=== PATIENT | male | born 1955 | race Caucasian/White ===

== ENCOUNTER 2018-10-05 14:49 | Inpatient (IN) | payer OTHER ==
[~2018-10-05] VITALS: Ht 165.1 cm; Wt 85.7 kg
[~2018-10-05 14:49] MED LIST: ASPIR 8181 MG PO; COREG3.125 MG PO; HYDROCHLOROTH12.5 M1 PO; NITROSTAT0.4 M1 SUBLING; NOHOMEMEDICATIONS; ZOCOR 10 MG TAB10 MG PO
[2018-10-05 20:35] VITALS: BP 156/93
--- NOTE | 2018-10-06 00:33 | NUR ---
PT ADMITTED TO 511 VIA W/C AT 2030 LAST EVENING. PT ALERT AND ORIENTED X 2, VERY FORGETFUL. PT POOR HISTORIAN, MOST OF HISTORY OBTAINED FROM RECORDS FROM [facility]. AMB TO BR WITH WALKER AND ASSIST X 1. RIGHT SIDED WEAKNESS AND SLURRED SPEECH NOTED. PT WITH STOOL SOILED JEANS UPON ARRIVAL TO UNIT. PT WEARING BRIEFS. PT REFUSES FLU SHOT. PT DENIES PAIN OR DISCOMFORT. ORIENTED TO ROOM AND USE OF CALL LIGHT. CONSENTS SIGNED WITH X. PT INSTRUCTED REGARDING FALL PRECAUTIONS. PT FED HIMSELF DINNER USING LEFT HAND. IMAN ROBISON, MICROCOMPUTER SUPPORT SPECIALIST NOTIFIED OF PT'S ADMISSION. PT DENIES PAIN OR DISCOMFORT. BED ALARM ON FOR SAFETY. PT APPEARS TO BE SLEEPING ON HOURLY ROUNDS.
[2018-10-06 04:03] LABS: CALCIUM 8.8 mg/dL (8.5-10.1); CREATININE 0.9 mg/dL (0.7-1.3); POTASSIUM 4.4 mmol/L (3.5-5.1)
[2018-10-06 04:35] LABS: HEMATOCRIT 41.3 % (42.0-52.0); HEMOGLOBIN 14.2 gm/dL (14.0-18.0); MCH 31.1 pg (26.0-34.0); MCHC 34.3 g/dL (28.0-37.0); MCV 90.8 fL (80.0-100.0); RBC 4.55 mil/uL (4.50-6.00); WBC 5.6 thou/uL (4.0-11.0)
[2018-10-06 08:49] VITALS: BP 148/87
--- NOTE | 2018-10-06 10:44 | NUR ---
ASSUMED CARES AT 0700. PT SOUND ASLEEP, WOKE UP AT 0730, ALERT AND ORIENTED *4. DENIES PAIN. VITALS STABLE. PT HAS A MILD COUGH, NON-PRODUCTIVE. SKIN REMAINS INTACT. PT UP WITH 1 PERSON MIN ASSIST AND TOLERATED WELL. AMBULATED WITH THERAPY AND TOLERATED ACTIVITY WELL. Q1H VISUAL CHECKS. CALL LIGHT WITHIN REACH. FALL PRECAUTIONS IN PLACE
[2018-10-06 12:21] LABS: CHOLESTEROL 80 mg/dL (<200); HDL CHOLESTEROL 35 mg/dL (>40); LDL CHOLESTEROL 35 mg/dL (<100); TC:HDL 2.3 Ratio (Not establshd); TRIGLYCERIDE 51 mg/dL (<150); VLDL 10 mg/dL (<40)
--- NOTE | 2018-10-06 16:16 | NUR ---
CHART REVIEW, CM CONSULTED FOR DCP. PT PREFERRS GOING BY ALEXANDER, HE WAS RESTING IN BED WITH EYES OPEN AND TV ON LOUD. OFFERED TO MUTE TV DURING VISIT SO HE COULD HER QUESTION. " OK"/PT. HE REPORTED AND TRIED TO ANSWER ALL QUESTION RT DCP, NOTED SOME DIFF FORMING WORDS WITH MOUTH AND SOFT SPOKEN, ENCOURAGE HIM TO SPEAK LOUD. " LIVES IN [place], DRINKS COFFEE IN MORNING AT [address]. SHED IS AT [place]. SHED IS WARM. TAKE THE BUS. MANAGE OWN MEDICATION, ONLY ON BLOOD PRESSURE MED. NO DR. HAVE CANE AT [facility]ACE. GOING TO STAY WITH BROTHER KIMBERLY. DO NOT NOW NUMBER, I WILL GET IT. DO CALL HIM HE IS BUSY"/ALEXANDER. EDUCATION ON HAVING PRIM DR TO SEE AND FOLLOW UP WITH, EDUCATION ON SENIOR CLINIC AND MEDICAID IF EVER NEEDS LTC " OK TO TALK TO THEMS"/ALEXANDER. CM TEAM TO SEND REFERRAL TO [facility]
--- NOTE | 2018-10-06 16:18 | NUR ---
dp sending face sheet to [facility]. DP will check to ensure delivery of fax.
[2018-10-06 19:20] VITALS: BP 134/64
--- NOTE | 2018-10-07 01:51 | NUR ---
PT ALERT AND ORIENTED X 4. RIGHT SIDED WEAKNESS AND SLURRED SPEECH NOTED. PT AMB TO BR WITH WALKER AND ASSIST X 2. VERY UNSTEADY GAIT. PT DENIES PAIN OR DISCOMFORT. BED ALARM ON FOR SAFETY. PT APPEARS TO BE SLEEPING ON HOURLY ROUNDS.
[2018-10-07 07:49] VITALS: BP 150/78
[2018-10-07 12:39] VITALS: BP 112/69
[2018-10-07 17:12] VITALS: BP 134/68
[2018-10-07 19:09] VITALS: BP 135/75
--- NOTE | 2018-10-07 20:36 | NUR ---
ASSUMED CARES AT 0700. ALERT AND ORIENTED X4. HAS SLURRED SPEECH, HAS WEAKNESS ON RIGHT SIDE. C/O HEADACHE THIS AM. RATED PAIN 5/10, GAVE PRN TYLENOL. DENIES PAIN NOW. VITALS STABLE. PT HAS A MILD COUGH, NON-PRODUCTIVE. SKIN REMAINS INTACT. PT UP WITH 1 PERSON MIN ASSIST AND TOLERATED WELL. AMBULATED WITH THERAPY AND TOLERATED ACTIVITY WELL. UP TO DINNING ROOM. HAS GOOD APPETITE. ABLE TO FEED HIMSELF WITH LEFT HAND. Q1H VISUAL CHECKS. CALL LIGHT WITHIN REACH. FALL PRECAUTIONS IN PLACE. GAVE REPORT TO NIGHT NURSE TO CONTINUE TO MONITOR.
--- NOTE | 2018-10-08 05:01 | NUR ---
PATIENT ALERT AND ORIENTED X PERSON AND PLACE. FLACCID ON THE R SIDE. CALLS OUT WHEN NEEDED. DENIES PAIN. SLEPT OFF AND ON DURING NIGHT.
[2018-10-08 07:56] VITALS: BP 141/79
--- NOTE | 2018-10-08 11:40 | NUR ---
ASSUMED CARE AT 0700, SHIFT ASSESSMENT DONE, VSS, MEDS GIVEN. REPORTED HEADECHE, PRN TYLENOL GIVEN WITH RELIEF. ATE BREAKFAST SITTING IN THE CHIAR THIS AM. WORKED WITH PHYSICAL THERAPHY AND OCCUPATIONAL THERAPHY. RESTING IN BED NOW. WILL CONTINUE TO ASSESS AND ASSIST WITH ADLs NEEDED.
[2018-10-08 19:40] VITALS: BP 148/76
--- NOTE | 2018-10-09 01:39 | NUR ---
PT LYING IN BED. DENIES PAIN. RESTING COMFORTABLY. NO NEEDS VOICED. CALL LIGHT WITHIN REACH. WILL CONTINUE TO PROVIDE FREQUENT OBSERVATION.
[2018-10-09 07:48] VITALS: BP 147/72
--- NOTE | 2018-10-09 12:38 | NUR ---
ASSUMED CARE AT APPROX 0715. PATIENT A/O X4. DYSARTHRIA NOTED, PATIENT IS ABLE TO MAKE NEEDS KNOWN WITH EXTRA TIME AND REPETITION. DENIES PAIN. VSS. EDUCATED ON EXCESSIVE CAFFEINE INTAKE AND HEART HEALTHY DIET. TOLERATING THIN LIQUIDS AND FOOD ON MODIFIED CHOPPED DIET. REFUSING TO COME OUT TO TABLES FOR MEALS, PATIENT OUT OF BED IN RECLINER, ROUNDED ON DURING MEALS. VOIDING PER URINAL AND TOILET, UP X2 PERSON ASSIST RECLINER <> STAND, AMBULATED TO BATHROOM X1 ASSIST, 2ND PERSON PRESENT FOR SAFETY. FALL PRECAUTIONS IN PLACE. WILL CONTINUE TO MONITOR.
[2018-10-09 16:33] VITALS: BP 122/79
[2018-10-09 19:27] VITALS: BP 140/74
--- NOTE | 2018-10-10 01:39 | NUR ---
ASSUMED CARE OF PT AT 1915. PT ALERT, ORIENTED X4. DENIES NAUSEA OR DYPSNEA. RIGHT HEMIPARESIS NOTED. STANDS AT BEDSIDE TO VOID, PT REQUESTS ASSIST OF TWO STAFF. C/O LEFT-SIDED HEADACHE, PARTIALLY RELIEVED WITH TYLENOL. HAS APPEARED TO BE SLEEPING WHEN CHECKED ON HOURLY ROUNDS. FALL PRECAUTIONS IN PLACE.
[2018-10-10 07:29] VITALS: BP 136/71
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
[2018-10-10 17:14] VITALS: BP 143/90
[2018-10-10 20:53] VITALS: BP 140/78
--- NOTE | 2018-10-11 00:52 | NUR ---
PT ALERT AND ORIENTED X 4. STANDS AT SIDE OF BED WITH ASSIST X 1 TO USE URINAL. RIGHT SIDED WEAKNESS AND SLURRED SPEECH NOTED. PT C/O HEADACHE. TYLENOL GIVEN ORDERED. BED ALARM ON FOR SAFETY. PT CHECKED ON HOURLY ROUNDS.
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
[2018-10-11 09:00] VITALS: BP 127/70
[2018-10-11 09:44] VITALS: BP 153/84
--- NOTE | 2018-10-11 10:56 | NUR ---
ASSUMED CARE AT 0700. PATIENT IS ALERT AND ORIENTED X4 AND FORGETFUL. PATIENT HAS RIGHT SIDED WEAKNESS AND SLURRED SPEECH. LUNGS ARE CLEAR AND DEMINISHED. ABD IS SOFT WITH BSX4. PATIENT VOIDS PER URINAL AND HAS EPISODES OF INCONTINENCE. FALL AND SAFETY PROTOCOLS IN PLACE. AFO BRACE ORDERED FOR PATIENT. DENIES ANY PAIN AT THIS TIME. CONTINUES TO PROGRESS SLOWLY TOWARDS D/C GOALS. WILL CONTINUE TO MONITER.
--- NOTE | 2018-10-11 13:04 | NUR ---
team meeting, recommendation : cont therapy and re-team. cm to reach out to brother zoey to discuss dcp. dcp re-team
[2018-10-11 20:00] VITALS: BP 141/71
--- NOTE | 2018-10-12 01:00 | NUR ---
PT ALERT AND ORIENTED X 4. RIGHT SIDED WEAKNESS AND SLURRED SPEECH NOTED. VOIDING ADEQUATE AMTS PER URINAL. PT DENIES PAIN OR DISCOMFORT. BED ALARM ON FOR SAFETY. PT APPEARS TO BE SLEEPING ON HOURLY ROUNDS.
[2018-10-12 09:34] VITALS: BP 128/80
[2018-10-12 19:05] VITALS: BP 138/64
--- NOTE | 2018-10-13 05:45 | NUR ---
Assumed care of pt at 1915. Pt alert and oriented x4, calm and cooperative. c/o headache, relieved with po tylenol. Ambulates to bathroom with assist of one using walker and gait belt. Denies dypsnea or nausea. Has appeared to be sleeping when checked on hourly rounds. Fall precautions in place.
[2018-10-13 05:56] LABS: BASOPHILS 1.2 % (0.0-2.0); EOSINOPHILS 4.3 % (0.0-3.0); HEMATOCRIT 41.4 % (42.0-52.0); HEMOGLOBIN 15.3 gm/dL (14.0-18.0); LYMPHOCYTES 20.3 % (24.0-44.0); MCH 32.4 pg (26.0-34.0); MCV 87.5 fL (80.0-100.0); MONOCYTES 11.2 % (1.0-8.0); PLATELET COUNT 258 thou/uL (150-400); RBC 4.73 mil/uL (4.50-6.00); RDW 12.8 % (10.5-14.5); WBC 4.7 thou/uL (4.0-11.0)
[2018-10-13 06:04] LABS: CALCIUM 8.8 mg/dL (8.5-10.1); CREATININE 0.9 mg/dL (0.7-1.3); MAGNESIUM 1.7 mg/dL (1.8-2.4); POTASSIUM 3.8 mmol/L (3.5-5.1)
[2018-10-13 09:44] VITALS: BP 127/56
--- NOTE | 2018-10-13 15:46 | NUR ---
AAOX4. COOPERATIVE. WORKING WITH PT, OT, AND ST. OUT TO COMMON AREA FOR MOST MEALS. FREQUENT CHECKS; WILL CONTINUE TO MONITOR.
[2018-10-13 20:03] VITALS: BP 112/83
--- NOTE | 2018-10-14 02:22 | NUR ---
ASSUMED CARE OF PT AT START OF SHIFT, PT RESTING IN BED WATCH TV NO CONCERNS VOICED TAKING PO MEDIATION AND FLUIDS WELL. DISCUSSED CURRENT PLAN OF CARE AND AGREEABLE. WILL CONINTUE TO MONITOR AND REPORT CHANGES. RESTED WELL THROUGHOUT HOULRY ROUNDS.
--- NOTE | 2018-10-14 10:31 | H ---
[facility] [place] [address] HISTORY AND PHYSICAL Name: ALEXANDER UGALDE ANCA Room #: 511-P ADM IN M.R.#: [id number] Admission: 10/05/18 Attend Phys: Allen Adams MD Discharge: Date of : 53 Report #: [id number] THIS REPORT FOR: //name// CC: Allen Adams [facility] physician/PCP DATE OF SERVICE: 10/06/2018 POSTADMISSION PHYSICIAN EVALUATION HISTORY OF PRESENT ILLNESS: Please see Kylah Holguin's nurse practitioners full history and physical dictation. The patient originally presented to [facility] on 09/29/2018 with right-sided weakness. He underwent MRI scanning and was diagnosed with a left pontine CVA. Carotid Doppler and echocardiogram were not noted to reveal any specific embolic source that could contribute to the stroke. Plan is for aspirin and Plavix 1 month and then switch to Plavix only. The patient was noted to have right-sided weakness with decreased functional mobility and ADLs as well as cognitive concerns and to rule out any dysphagia. He has some communication difficulties with slurred speech that have been noted. He has been admitted for acute in-hospital inpatient rehabilitation. PAST MEDICAL HISTORY: Includes history of hypertension, hyperlipidemia, ETOH, tobacco abuse and noted to have an AR in the past. MEDICATIONS: Please see the full medication list. This includes vitamins, herbals, and supplements. SOCIAL HISTORY: He had been living with a girlfriend. His plan is to go stay with his brother. There is a threshold into the house. Did not utilize gait aids premorbidly. REVIEW OF SYSTEMS: No current complaints of chest pain, shortness of breath, or abdominal discomfort. PHYSICAL EXAMINATION: GENERAL: A 63-year-old male, pleasant, in no obvious distress, does have some dysarthria. HEENT: Appeared benign. CHEST: Sounded clear. CARDIOVASCULAR: Regular rate and rhythm. ABDOMEN: Bowel sounds positive, nontender. GENITOURINARY AND RECTAL: Deferred. EXTREMITIES: He does have some right-sided weakness. Right lower extremity is probably a grade 3-3+/5. Left lower extremity is more of a grade 4/5. Appears to have some mild weakness of that right upper extremity as well compared to the [address] [address] HISTORY AND PHYSICAL Name: ALEXANDER UGALDE [place] Room #: 511-P [facility] IN .R.#: [id number] Admission: 10/05/18 Attend Phys: Allen Adams MD Discharge: Date of : 53 Report #: [id number] left. He was a little groggy during the examination, which affected volitional testing. He has been min-assist to mod-assist for basic transfers utilizing a walker and has been calm and cooperative. ASSESSMENT: This is a 63-year-old right-handed male with the following problem list: 1. Left pontine stroke. 2. Right-sided hemiparesis. 3. Dysarthria. 4. Functional mobility, ADLs and cognitive communication/swallowing concerns. He is on a heart healthy diet, but speech therapy will be monitoring. 5. Hypertension. 6. ETOH/tobacco abuse. 7. History of right radial nerve palsy. PLAN: The overall plan of care is based on the preadmission screen, post-admission physician evaluation and information garnered from therapy assessments. 1. Estimated length of stay is probably at least 2-3 weeks pending progress. 2. Medical prognosis is reasonably good. 3. Anticipated interventions includes the interdisciplinary acute inpatient rehabilitation program with the goal of maximizing the patient's functional independence, so that he can hopefully return back to his prior living situation. We will have PT, OT, speech therapy involved as well as Rehabilitation nursing to assist regarding medication management, skin care prophylaxis, bowel and bladder issues and nursing education. Case management to be involved as well as the interdisciplinary acute inpatient rehabilitation team. 4. Anticipated functional outcomes would be for the patient to ideally be modified independent at least at the walker level with mobility and ADLs and to improve as far as cognition and to be swallowing without difficulty as well as communication. 5. Discharge destination would be to stay with his brother as noted above. 6. Expected therapy by discipline includes PT, OT and speech 1 hour per day each five days a week throughout the duration of the acute inpatient rehabilitation stay. From a postadmission physician evaluation perspective, there are no relevant changes since the preadmission screening. Please see the above review of prior and current medical and functional conditions and comorbidities. Please see the previous and current functional status. As far as risk of complications, he does have the above noted comorbidities. The initial plan of care involves the interdisciplinary acute inpatient rehabilitation program with the goal of maximizing the patient's functional independence, so he can hopefully return back to his home setting. Measurable functional goals would be for the patient to become modified independent at a walker level, so that he can return back to [address] [address] HISTORY AND PHYSICAL Name: ALEXANDER UGALDE Room #: 132-P ADM IN M.R.#: [id number] Admission: 10/05/18 Attend Phys: Allen Adams MD Discharge: Date of : 53 Report #: [id number] the home setting. Prognosis is reasonably good with estimated length of stay probably at least 2-3 weeks. Potential barriers would include his above noted comorbidities and decreased functional status. The patient meets diagnostic criteria for an acute in-hospital inpatient rehabilitation stay. He meets the medical necessity criteria and we will have the senior financial consultant physicians continue to follow. He does have the tolerance for therapies and has appropriate discharge goals back to the home setting. <ELECTRONICALLY SIGNED> By: Allen Adams MD 10/14/18 1031 1132 1150 Allen Adams MD /nt
--- NOTE | 2018-10-14 10:31 | PLAN ---
[facility] [place] [address] REHAB UNIT PLAN OF CARE Name: ALEXANDER UGALDE Room #: 511-P ADM IN M.R.#: [id number] Admission: 10/05/18 Attend Phys: Allen Adams MD Discharge: Date of : 53 Report #: [id number] THIS REPORT FOR: //name// CC: Allen Adams [facility] physician/PCP DATE OF SERVICE: 10/07/2018 PROGRESS NOTE/OVERALL PLAN OF CARE SUBJECTIVE: The patient is seen back today in followup. He was in no distress. Temperature 98, pulse 56, respirations 12, blood pressure 150/78. Transfers are mod assist with gait, mod assist 30 feet front-wheeled walker. In occupational therapy, upper body dressing is max assist with lower body dressing dependent. Speech is evaluating regarding cognition/swallowing. . ASSESSMENT: 1. Left pontine stroke. 2. Right-sided hemiparesis. 3. Hypertension. 4. ETOH, tobacco abuse. 5. History of right radial nerve palsy. PLAN: The overall plan of care is based on the preadmission screen, post-admission physician evaluation and information garnered from therapy assessments. 1. Estimated length of stay is at least 2-3 weeks pending progress. 2. Medical prognosis is reasonably good. 3. Anticipated interventions includes the interdisciplinary acute inpatient rehabilitation program with PT, OT, speech rehab nursing assisting regarding medication management, skin care prophylaxis, bowel and bladder issues and nursing education. Case management is involved as well as interdisciplinary acute rehabilitation team and the portfolio consultant physicians. 4. Anticipated functional outcomes would be for the patient to become modified independent with transfers, mobility, ADLs, communication and swallowing, so he can hopefully return to the home setting. He indicates he is going to move in with his brother. 5. Discharge destination is as noted above. There is an involved girlfriend that he has lived with the past and he indicated he was going to try to live with his brother. 6. Expected therapy by discipline includes PT, OT and speech 1 hour per day each five days a week throughout the duration of the acute inpatient [address] [address] REHAB UNIT PLAN OF CARE Name: ALEXANDER UGALDE Room #: 511-P [facility] IN .R.#: [id number] Admission: 10/05/18 Attend Phys: Allen Adams MD Discharge: Date of : 53 Report #: [id number] rehabilitation stay. Addendum: He also indicated that there is a friend that he could stay with as well. <ELECTRONICALLY SIGNED> By: Allen Adams MD 10/14/18 1031 1219 1845 Allen Adams MD /RICK
--- NOTE | 2018-10-14 12:39 | NUR ---
Nutrition: Pt admitted with CVA to rehab unit. Seen due to LOS. Chart reviewed. pt is eating well, 100% of meals recorded. Did voice he was tiring of mechanical soft diet. Noted ST conducting vital stim and trial tray of regular solids today. No wt since admit, prior stable weights. Low risk.
--- NOTE | 2018-10-14 20:03 | NUR ---
ASSUMED CARE AT 0700. PATIENT IS ALERT AND ORIENTED X4 AND FORGETFUL. PATIENT HAS RIGHT SIDED WEAKNESS AND SLURRED SPEECH. LUNGS ARE CLEAR AND DIMINISHED. ABD IS SOFT WITH BSX4.LAST BM WAS YESTERDAY PATIENT VOIDS PER URINAL WHILE STANDING, ASSISTED BY STAFF. HAS EPISODES OF INCONTINENCE OCCASIONALLY. FALL AND SAFETY PROTOCOLS IN PLACE. AFO BRACE USES WHEN WALKING DENIES ANY PAIN AT THIS TIME. OFFERED SUPPORTIVE CARE. ENCOURAGED PT TO VOICE HIS NEEDS. UP TO DINNING ROOM FOR MEALS, HAS GOOD APPETITE, ABLE TO FEED SELF, ASSISTED WITH SETTING UP. REASSESSMENT PER CHART. MEDS GIVEN. PT C/O NOT ABLE TO SLEEP LAST NIGHT, NICOTINE PATCH ON RIGH UPPER ARM, ENCOURAGED PT TO TAKE IT OFF IF HE ISABELLE'T SLEEP. OBTAINED TEMAZEPAM PRN FOR SLEEP. GAVE REPORT TO NIGHT NURSE TO GIVE SLEEPING MED NEEDS. CONTINUES TO PROGRESS SLOWLY TOWARDS D/C GOALS.
[2018-10-14 21:23] VITALS: BP 142/82
--- NOTE | 2018-10-15 04:33 | NUR ---
PATIENT ALERT AND ORIENTED X4. DENIES PAIN. USING URINAL. GIVEN SLEEP AIDE WITH GOOD RESULTS. RESTING QUIETLY. WILL MONITOR.
[2018-10-15 08:20] VITALS: BP 134/69
--- NOTE | 2018-10-15 11:00 | NUR ---
ASSUMED CARE AT 0700. PATIENT IS ALERT AND ORIENTED X4. TOOK TEMZAPEM LAST NIGHT. REPORT SLEPT WELL. PATIENT HAS RIGHT SIDED WEAKNESS AND SLURRED SPEECH. REASSESSMENT PER CHART. CONT BLADDER, USING URINAL WHILE STANDING, ASSISTED BY STAFF. FALL AND SAFETY PROTOCOLS IN PLACE. AFO BRACE USES WHEN WALKING DENIES ANY PAIN AT THIS TIME. OFFERED SUPPORTIVE CARE. ENCOURAGED PT TO VOICE HIS NEEDS. UP TO DINNING ROOM FOR BREAKFAST, HAS GOOD APPETITE, ABLE TO FEED SELF, ASSISTED WITH SETTING UP. REASSESSMENT PER CHART. MEDS GIVEN. PT IS IN GOOD SPIRIT AND WORK WELL WITH STAFF. CONTINUES TO PROGRESS SLOWLY TOWARDS D/C GOALS.FALL PRECAUTION IN PLACE. CALL LIGHT WITHIN REACH. PT CALLS APPROPRIATELY. HOURLY CHECK FOR NEEDS AND SAFETY.
[2018-10-15 19:40] VITALS: BP 137/84
--- NOTE | 2018-10-16 04:19 | NUR ---
ASSUMED CARE OF PT AT 1915. PT ALERT AND ORIENTED X4, CALM AND COOPERATIVE. RIGHT-SIDED WEAKNESS NOTED, RIGHT CHICKEN HANGER WEAK. DENIES PAIN, NAUSEA OR DYPSNEA. HAS APPEARED TO BE SLEEPING WHEN CHECKED ON HOURLY ROUNDS. FALL PRECAUTIONS IN PLACE.
[2018-10-16 08:00] VITALS: BP 141/76
--- NOTE | 2018-10-16 12:17 | NUR ---
ASSUMED PT CARE AT 0700H. PT VOICED NO CONCERN. PT HAS NO S/S OF DISTRESS. PT PARTICIPATED WITH THERAPY. PT IMPROVING ON L SIDE NOTED. PT PERSONAL BELONGINGS AND CALL LIGHT WITHIN REACH. PT CONTINUES BEING MONITORED FOR SAFETY.
[2018-10-16 17:28] VITALS: BP 129/67
[2018-10-16 20:17] VITALS: BP 148/75
--- NOTE | 2018-10-16 22:49 | NUR ---
PT ALERT AND ORIENTED X 4. RIGHT SIDED WEAKNESS. SLURRED SPEECH. STANDS AT SIDE OF BED TO USE URINAL WITH ASSIST X 1. PT DENIES PAIN OR DISCOMFORT. BED ALARM ON FOR SAFETY. PT APPEARS TO BE SLEEPING ON HOURLY ROUNDS.
[2018-10-17 07:38] VITALS: BP 136/63
--- NOTE | 2018-10-17 09:30 | NUR ---
ASSUMED CARE AT 0700. [place], HAS SLURRED SPEECH. PATIENT IS ALERT AND ORIENTED X4.ABLE TO VOICE HIS NEEDS. REPORTS DIDN'T SLEEP WELL LAST NIGHT AND C/O ARM SORE. DIDN'T ASK FOR SLEEP AID OR PAIN. ENCOURAGED PT TO ASK FOR PAIN AND SLEEPING AID NEED. PATIENT HAS RIGHT SIDED WEAKNESS, HIS GOALS ARE TO WORK ON HIS RIGHT LEG AND ARM TODAY AND PARTICIPATE WITH THERAPISTS. REASSESSMENT PER CHART. CONT BLADDER, USING URINAL WHILE STANDING, ASSISTED BY STAFF. FALL AND SAFETY PROTOCOLS IN PLACE. AFO BRACE USES WHEN WALKING DENIES ANY PAIN AT THIS TIME. OFFERED SUPPORTIVE CARE. ENCOURAGED PT TO VOICE HIS NEEDS. UP TO DINNING ROOM FOR BREAKFAST, HAS GOOD APPETITE, ABLE TO FEED SELF, ASSISTED WITH SETTING UP. MORNING MEDS GIVEN. DENIES SOB, PAIN OR HEADACHE. PT IS IN GOOD SPIRIT. CONTINUES TO PROGRESS SLOWLY TOWARDS D/C GOALS.FALL PRECAUTION IN PLACE. CALL LIGHT WITHIN REACH. PT CALLS APPROPRIATELY. HOURLY CHECK FOR NEEDS AND SAFETY.
[2018-10-17 19:35] VITALS: BP 131/70
--- NOTE | 2018-10-18 03:20 | NUR ---
Assumed care of pt at 1915. Pt alert and oriented x4. Denies pain, nausea or dypsnea. Declined sleeper at HS, has appeared to be sleeping when checked on hourly rounds. Fall precautions in place.
[2018-10-18 06:00] LABS: ABSOLUTE NEUTROPHILS 2.8 thou/uL (1.4-8.2); BASOPHILS 1.2 % (0.0-2.0); EOSINOPHILS 5.4 % (0.0-3.0); HEMATOCRIT 39.7 % (42.0-52.0); LYMPHOCYTES 21.8 % (24.0-44.0); MCH 31.2 pg (26.0-34.0); MCHC 35.3 g/dL (28.0-37.0); MCV 88.2 fL (80.0-100.0); MONOCYTES 10.9 % (1.0-8.0); PLATELET COUNT 225 thou/uL (150-400); POLYS 60.7 % (36.0-66.0); RDW 12.2 % (10.5-14.5); WBC 4.6 thou/uL (4.0-11.0)
[2018-10-18 06:10] LABS: CREATININE 0.9 mg/dL (0.7-1.3); MAGNESIUM 1.9 mg/dL (1.8-2.4); POTASSIUM 3.9 mmol/L (3.5-5.1)
[2018-10-18 08:07] VITALS: BP 126/64
--- NOTE | 2018-10-18 13:38 | NUR ---
team meeting recommendation dc home health ( pt, ot, st, nursing, aid, sw ), family training on , no dme, pt has own walker.
--- NOTE | 2018-10-18 17:21 | NUR ---
ASSUMED CARE AT 0700, SHIFT ASSESSMENT DONE, MEDS GIVEN, VSS. DENIES ANY NAUSEA, VOMITING, PAIN. WORKED WITH PHYSICAL AND OCCUPATIONAL THERAPHY. WILL CONTINUE TO ASSESS AND ASSIST WITH ADLs NEEDED.
[2018-10-18 19:20] VITALS: BP 171/96
[2018-10-19 08:00] VITALS: BP 113/73
--- NOTE | 2018-10-19 08:00 | NUR ---
ASSUMED PT CARE AT 0700. PT UP IN CHAIR AT DINING ROOM TABLE FOR BREAKFAST. IN NO APPARENT DISTRESS.
--- NOTE | 2018-10-19 10:00 | NUR ---
PT UP IN CHAIR, DRESSED. ALERT/ORIENTED X4. PLEASANT AND COOPERATIVE. DENIES PAIN AT THIS TIME. ASSESSMENT IS CHARTED. RIGHT SIDE WEAKNESS NOTED. NO OTHER CONCERNS AT THIS TIME. WILL CONTINUE WITH CURRENT PLAN OF CARE.
--- NOTE | 2018-10-19 12:30 | NUR ---
PT UP IN WHEELCHAIR FOR LUNCH IN DINING ROOM. NO NEW CONCERNS AT THIS TIME.
--- NOTE | 2018-10-19 16:38 | NUR ---
Pt PARTICIPATED IN COMMUNITY REINTEGRATION ACTIVITY WITH OT ON 10/19/18, PLEASE REFER TO OT DOCUMENTATION
--- NOTE | 2018-10-19 16:39 | NUR ---
PT RESTING IN BED, IN NO APPARENT DISTRESS. NO NEW CONCERNS AT THIS TIME.
[2018-10-19 19:20] VITALS: BP 149/76
--- NOTE | 2018-10-20 05:07 | NUR ---
PT RESTED GOOD, DENIES PAIN, SWALLOWED PILLS WITH NO DIFFICULTY, NO COUGH NOTED, RIGHT SIDE STILL WEAK, ON ROOM AIR, VOIDING PER URINAL, NO BM PASSED THIS SHIFT, BED ALARM ON, HOURLY ROUNDING, MONITORED.
[2018-10-20 07:45] VITALS: BP 134/70
--- NOTE | 2018-10-20 08:00 | NUR ---
PT DRESSED, UP IN CHAIR AND AT DINING ROOM TABLE FOR BREAKFAST. TOLERATING MEAL WELL.
[2018-10-20 08:50] VITALS: BP 129/76
--- NOTE | 2018-10-20 10:30 | NUR ---
PT UP IN WHEELCHAIR IN DINING ROOM. PT IS ALERT, ORIENTED X4 AND PLEASANT. ASSESSMENT IS CHARTED. PT HAS MILD LEFT SIDE WEAKNESS. DENIES PAIN AT THIS TIME. NO NEW CONCERNS. WILL CONTINUE WITH CURRENT PLAN OF CARE.
--- NOTE | 2018-10-20 12:34 | NUR ---
PT DOING WELL THIS SHIFT. TOLERATING THERAPY WELL. PT HAS BEEN UP IN WHEELCHAIR MOST OF THE DAY. AT DINING ROOM TABLE NOW WITH ST FOR LUNCH.
--- NOTE | 2018-10-20 14:12 | NUR ---
luis spoke with 5n team, brother zoey did not show for therapy training. cm call zoey he stated" i could not make it today, i had to get this job done 1st. is he going home tomorrow?, if so i will pick him up by 11 am, i do not have to work tomorrow."/zoey. [facility] ( pt, ot, st, nursing, aid and sw). zoey address is [address] [place] [address]. [facility] has own dme. will cont following as needed for dc needs.
[2018-10-20 14:18] VITALS: BP 129/76
--- NOTE | 2018-10-20 16:24 | NUR ---
PT DOING WELL THIS AFTERNOON. PARTICIPATED IN THERAPY TODAY AND TOLERATED WELL. NO NEW CONCERNS AT THIS TIME.
[2018-10-20 20:29] VITALS: BP 119/78
--- NOTE | 2018-10-21 04:10 | NUR ---
assumed care at approx 1900 evening 10/20. pt lying in bed with head of bed elevated alert and oriented x4 appropriate and cooperative. pt stated he was looking forward to being discharged. pt up to bathroom to have bm and also incontinent with some bm in his brief. pt voiding per urinal. pt took hs meds with water tolerating well. pt appears to be sleeping soundly with hourly rounding checks. bed alarm on and call light in reach. will continue to monitor.
[2018-10-21] MEDS ORDERED: NITROSTAT0.4 M1 SUBLING (07:47)
[2018-10-21] MEDS ORDERED: PEPCID20 MG PO (07:47)
[2018-10-21] MEDS ORDERED: COREG3.125 MG PO (07:47)
[2018-10-21] MEDS ORDERED: GABAPENTIN 100100 MG PO (07:47)
[2018-10-21] MEDS ORDERED: COLACE100 MG PO (07:47)
[2018-10-21] MEDS ORDERED: ZOCOR 10 MG TAB10 MG PO ×2 (07:47→07:49)
[2018-10-21] MEDS ORDERED: FELODIPINE ER10 MG PO (07:47)
[2018-10-21] MEDS ORDERED: ASA5UEC PO (07:47)
[2018-10-21] MEDS ORDERED: HYDROCHLOROTH12.5 M1 PO (07:49)
--- NOTE | 2018-10-21 09:05 | NUR ---
ASSUMED PATIENT CARE AT 0715 A.M. PATIENT IN BED, SUPINE POSITION. DENIES PAIN; DISCHARGE PENDING. PATIENT'S BROTHER SCHEDULED TO SENIOR SALES DIRECTOR PATIENT AT AROUND 11AM THIS DATE.
[2018-10-21 10:50] VITALS: BP 129/76
--- NOTE | 2018-10-21 13:01 | NUR ---
DISCHARGE INSTRUCTIONS GIVEN TO BROTHER AND PATIENT. PATIENT LEFT UNIT VIA W/C WITH MEDS AND ALL BELONGINGS.
--- NOTE | 2018-10-28 15:08 | H ---
[facility] [place] [address] HISTORY AND PHYSICAL Name: ALEXANDER UGALDE ANCA Room #: 511-P [facility] IN M.R.#: [id number] Admission: 10/05/18 Attend Phys: Allen Adams MD Discharge: 10/21/18 Date of : 51 Report #: [id number] THIS REPORT FOR: //name// CC: Allen Adams [facility] physician/PCP DATE OF SERVICE: 10/05/2018 HISTORY OF PRESENT ILLNESS: This is a 63-year-old male who is now admitted to acute inpatient rehabilitation unit from [facility]. The patient admitted to [facility] on 09/29/2018 with right-sided weakness x 2 days. He had actually presented approximately 10 days prior to [facility] with similar symptoms and at that time, MRI of the head was negative. On 09/29/2018, followup MRI of the brain revealed an acute left martha CVA. The patient has right-sided hemiparesis. He also has some dysarthria and dysphagia. As mentioned above, the patient is now on the inpatient rehabilitation unit at [facility]. Today, the patient reports some aches and pains in his legs. He does get some short of air with exertion and has a dry cough. He denies chest pain, nausea, abdominal pain. He had a bowel movement today. He denies any dysuria. He does have some hesitancy with starting of urination. The patient denies recent falls; however, the [facility] records do revealed 2 falls prior to admission. The patient denies dizziness, headache, numbness or tingling. PAST MEDICAL HISTORY: Hyperlipidemia, [place], hypertension, history of small CVA, medical noncompliance. HABITS: The patient is an everyday 1 pack per day cigarette smoker. He apparently has had no alcohol for 1 month, but has been a heavy drinker prior. Denies any illicit drug use. CODE STATUS: Full code. SOCIAL HISTORY: The patient has been homeless in the past. He was most recently living with his girlfriend. He tells me today he plans to move in with his brother who lives in the [facility]. He thinks there is about one stair to get inside the home and 0 stairs once inside. Premorbidly, the patient used a front-wheel walker. He was independent with ADLs and IADLs premorbidly. ALLERGIES: No known drug allergies. MEDICATIONS: Nicotine 14 mg transdermal patch daily, hydrochlorothiazide 12.5 mg daily, Plavix 75 mg daily, aspirin 325 mg daily, Norvasc 10 mg daily, nitroglycerin p.r.n., Carvedilol 3.125 mg twice a day, atorvastatin 10 mg at bedtime, gabapentin 100 mg twice a day, meclizine 25 mg t.i.d., senna 8.[address] [address] HISTORY AND PHYSICAL Name: ALEXANDER UGALDE Room #: 511-P [facility] IN M.R.#: [id number] Admission: 10/05/18 Attend Phys: Allen Adams MD Discharge: 10/21/18 Date of : 51 Report #: [id number] daily, Colace 100 mg twice a day p.r.n., bisacodyl 10 mg at bedtime rectally p.r.n. REVIEW OF SYSTEMS: Remainder of his 14-point review of systems is negative except as listed in HPI. PHYSICAL EXAMINATION: VITAL SIGNS: Blood pressure 148/87, respirations 17, pulse is 60, temperature 98.0. He is 95% oxygen on room air. GENERAL: Awake, alert. He is oriented x 3. He appears in no acute distress. HEAD: Normocephalic. EYES: EOMs are intact. No icterus. ENT: No sinus tenderness. CHEST: Lungs are clear. No crackles. He does have some scattered rhonchi, likely from chronic tobacco use. No significant wheeze. HEART: S1, S2, regular rate and rhythm. ABDOMEN: Bowel sounds are positive, soft, nontender, nondistended. GENITOURINARY: No CVA tenderness. EXTREMITIES: He has functional use of his left upper extremity for daily tasks. Right upper extremity, unable to lift antigravity, unable to move fingers, very limited safe and vault mechanic on the right. Decreased safe and vault mechanic on the left. No noted tremors. Decreased tone of the right upper extremity. No edema bilateral lower extremities. Negative Homans sign. Right foot drop, unable to lift lower extremities antigravity. He does have some abrasions versus scratch travis to his lower extremities. The patient ambulated min assist with a roller walker 120 feet with multiple minor losses of balance. He does have decreased foot clearance, decreased coordination. SKIN: The patient has multiple tattoos upper and lower extremities. NEUROLOGIC: He does have dysarthric speech, sometimes it is unintelligible. LABORATORY DATA: From 10/06/2018 shows WBC is 5.6, hemoglobin 14.2, hematocrit 41.3, platelets 266. Sodium 135, potassium 4.4, BUN 17, creatinine 0.9, glucose 111, calcium 8.8. ASSESSMENT: 1. Acute left martha cerebrovascular accident. 2. Right-sided hemiparesis. 3. Dysphagia and dysarthria. 4. Hypertension. 5. Hyperlipidemia. 6. Tobacco abuse. 7. History of alcohol abuse. 8. History of medical noncompliance. PLAN: The patient has been admitted to acute inpatient rehabilitation for physical, occupational and speech therapies. He will have the hospitalist [facility] [address] [place] [address] HISTORY AND PHYSICAL Name: ALEXANDER UGALDE [place] Room #: 511-P [facility] IN [facility].#: [id number] Admission: 10/05/18 Attend Phys: Allen Adams MD Discharge: 10/21/18 Date of : 51 Report #: [id number] services follow for acute medical management. He will also have neuropsychology testing done. Social work services will follow for discharge planning. He will have a team conference next Wednesday. He is on a heart healthy diet with mechanically ground and no straws, please see orders. <ELECTRONICALLY SIGNED> By: GEORGE Gonzalez 10/28/18 [id number] GEORGE Gonzalez /nt
== END 2018-10-21 13:08 | disposition home health service (06) | DRG 56 ==
LOC: ENTRNSPT 10-21 12:59 → EDTRNSPTSTS 10-21 13:01 → CMPTRNSPT 10-21 13:24
PROVIDERS: Nurse Practitioner; ADMIT Physical Medicine & Rehabilitation
DX: G81.91 Hemiplegia, unspecified affecting right dominant side (principal); I63.9 Cerebral infarction, unspecified; R13.10 Dysphagia, unspecified; R47.1 Dysarthria and anarthria; I10 Essential (primary) hypertension; E78.5 Hyperlipidemia, unspecified; F17.210 Nicotine dependence, cigarettes, uncomplicated; F10.10 Alcohol abuse, uncomplicated; Y90.9 Presence of alcohol in blood, level not specified; G56.31 Lesion of radial nerve, right upper limb; F01.50 Vascular dementia, unspecified severity, without behavioral disturbance, psychotic disturbance, mood disturbance, and anxiety; R47.81 Slurred speech; G62.9 Polyneuropathy, unspecified; Z91.14 Patient's other noncompliance with medication regimen; I25.2 Old myocardial infarction; Z71.6 Tobacco abuse counseling; Z79.899 Other long term (current) drug therapy
CPT/HCPCS: 10112